=== PATIENT | male | born 1970 | race Caucasian/White ===

== ENCOUNTER 2020-12-10 12:51 | Emergency (ER) | payer MEDICAID ==
[~2020-12-10] VITALS: Ht 162.6 cm; Wt 63.6 kg
[2020-12-10] MEDS ORDERED: IBUPROFEN 800 MG TABLET PO ONE (14:15)
[2020-12-10] MEDS ORDERED: FLUORESCEIN SODIUM 1 MG STRIP OS ONE (14:15)
[2020-12-10] MEDS ORDERED: PROPARACAINE HCL 0.5% 15 ML OPHTHALMIC SOLUTION OS ONE (14:15)
[2020-12-10 15:00] VITALS: BP 112/65
== END 2020-12-10 15:27 | disposition home or self-care (01) ==
LOC: EMS 12:55
DX: T15.02XA Foreign body in cornea, left eye, initial encounter (principal); F17.210 Nicotine dependence, cigarettes, uncomplicated; Z90.89 Acquired absence of other organs; W22.8XXA Striking against or struck by other objects, initial encounter; Y93.01 Activity, walking, marching and hiking; Y92.488 Other paved roadways as the place of occurrence of the external cause; Y99.8 Other external cause status
CPT/HCPCS: 65222; 99284; Z7502; Z7610